=== PATIENT | female | born 1985 | race Caucasian/White ===

== ENCOUNTER 2022-01-14 10:33 | Emergency (ER) | payer OTHER, SELFPAY ==
[2022-01-14 11:04] VITALS: BP 103/72; BP 112/82; PULSE 62; PULSE 74; RESP 20; O2SAT 97; O2SAT 98; BMI 23.8
[2022-01-14] MEDS: Ondansetron ODT 4 MG TAB.RAPDIS TRANSLINGU (11:53)
[2022-01-14] MEDS: cefTRIAXone sodium 500 MG VIAL IM (11:53)
[2022-01-14] MEDS: metroNIDAZOLE 500 MG TABLET PO (11:53)
[2022-01-14] MEDS: levonorgestreL 1.5 MG TABLET PO (11:53)
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
[2022-01-14 12:07] VITALS: BP 112/81; PULSE 63; RESP 18; O2SAT 97
[2022-01-14 12:07] LABS: MANUAL DIFF FLAG NO
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
[2022-01-14 12:09] LABS: Basophils Percent Auto 0.6 % (0-2); Eosinophils Absolute Auto 0.1 X10*3/uL (0.0-0.4); Eosinophils Percent Auto 1.8 % (0-4); Hematocrit 44.3 % (37.0-47.0); Hemoglobin 14.8 g/dl (12.0-16.0); Imm Gran Abs Auto 0.02 X10*3/uL (0.00-0.03); Imm Gran Pct Auto 0.3 % (0.0-0.4); Lymphocytes Absolute Auto 1.8 X10*3/uL (1.2-4.9); Lymphocytes Percent Auto 27.6 % (20-40); Mean Corpuscular HGB Conc 33.4 g/dl (31.0-35.0); Mean Corpuscular Hemoglobin 31.5 pg (27.0-33.0); Mean Corpuscular Volume 94.3 fL (80.0-98.0); Monocytes Absolute Auto 0.4 X10*3/uL (0.1-1.2); Monocytes Percent Auto 5.9 % (2-11); Neutrophils Absolute Auto 4.2 x10*3/uL (2.0-8.3); Neutrophils Percent Auto 63.8 % (45-73); Platelet Count 356 X10*3/uL (160-400); Red Cell Distribution Width 12.3 % (11.0-16.0); White Blood Count 6.6 X10*3/uL (4.8-10.8)
[2022-01-14 12:24] LABS: COVID-19 Test Negative (Negative); IDNOW Serial# 16C4AD1C
[2022-01-14 12:31] LABS: Alanine Aminotransferase 12 U/L (0-31); Albumin Level 4.8 g/dL (3.5-5.0); Alkaline Phosphatase 84 U/L (39-117); Anion Gap 14 (12-20); Aspartate Amino Transferase 18 U/L (5-31); Bilirubin Total 0.4 mg/dL (0.0-1.0); Blood Urea Nitrogen 15 mg/dL (9-16); Calcium 9.6 mg/dL (8.4-10.2); Carbon Dioxide 25 mmol/L (22-29); Chloride 108 mmol/L (96-108); Estimated Glomerular Filt Rate > 60; Glucose Random 78 mg/dL (60-115); Potassium 4.6 mmol/L (3.3-5.1); Sodium 142 mmol/L (135-145); Total Protein 7.6 g/dL (6.5-8.0)
[2022-01-14] MEDS: Post Exposure Medication Kit 1 KIT PO (12:31)
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
[2022-01-14 16:27] VITALS: BP 93/51; PULSE 59; RESP 16; O2SAT 94
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
[2022-01-14 20:00] VITALS: BP 101/67; PULSE 62; RESP 16; TEMP 36.6; O2SAT 98
[2022-01-14 20:21] LABS: Appearance Urine Clear; Color Urine Dark Yellow; Glucose Urine UA Negative (Negative); Leukocyte Esterase Urine Small (1+) (Negative); Nitrite Urine Positive (Negative); Specific Gravity - Urine >= 1.030 (1.005-1.025); Urine Blood Negative (Negative); Urine Ketones 15 mg/dL (Negative); Urine Protein Trace mg/dL (Neg-Trace)
[2022-01-14 20:23] LABS: Bacteria Urine 3+ (None Seen); Hyaline Casts Urine 0-2 /LPF (0-2); RBC Urine 0-2 /HPF (0-2); UACC Culture Trigger YES
[2022-01-15 03:35] LABS: HBc Num1 0.04 S/CO (0.00-0.79); HBsAGNum1 0.27 S/CO (0.00-0.99); HIV AB/AG Nonreactive (Nonreactive); HIV Num 1 0.05 S/CO (0.00-0.99); Hepatitis B Core Antibody Nonreactive (Nonreactive); Hepatitis B Surface Antigen Negative (Negative); ~HepC Num1 0.18 S/CO (0.00-0.79); ~Hepatitis B Surface Antibody REACTIVE (Nonreactive); ~Hepatitis C Antibody Nonreactive (Nonreactive)
[2022-01-15 05:21] LABS: Syphilis Screen Nonreactive (Nonreactive)
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
--- NOTE | 2022-01-16 12:18 | PC.NURSE ---
Patient agreed to come back for 10:00am to have a kit collection done. She has not called back or shown up at this time.
== END 2022-01-14 20:08 | disposition home or self-care (01) ==
PROVIDERS: Nurse Practitioner Family; Emergency Provider Emergency Medicine
DX: T76.21XA Adult sexual abuse, suspected, initial encounter (principal); Z20.2 Contact with and (suspected) exposure to infections with a predominantly sexual mode of transmission; Z79.899 Other long term (current) drug therapy; F17.200 Nicotine dependence, unspecified, uncomplicated; Z71.6 Tobacco abuse counseling; Z20.822 Contact with and (suspected) exposure to COVID-19; Y93.9 Activity, unspecified; Y92.810 Car as the place of occurrence of the external cause; Y99.9 Unspecified external cause status
CPT/HCPCS: 80053; 81001; 85025; 86704; 86706; 86780; 86803; 87086; 87340; 87389; 87635; 96372; 99284; J0696

== ENCOUNTER 2022-01-16 12:30 | Emergency (ER) | payer OTHER, SELFPAY ==
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
[2022-01-16 13:27] VITALS: BMI 22.3
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
== END 2022-01-16 15:46 | disposition left against medical advice (07) ==
PROVIDERS: Emergency Provider Emergency Medicine
DX: T74.21XD Adult sexual abuse, confirmed, subsequent encounter (principal); F41.9 Anxiety disorder, unspecified; F17.200 Nicotine dependence, unspecified, uncomplicated
CPT/HCPCS: 99282

== ENCOUNTER 2022-02-18 06:37 | Emergency (ER) | payer OTHER, SELFPAY ==
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
[2022-02-18 06:53] VITALS: BP 124/84; PULSE 94; PULSE 97; RESP 20; TEMP 36.8; O2SAT 97; BMI 26.5
--- NOTE | 2022-02-18 06:59 | PC.NURSE ---
pt presenting with erratic behavior, unable to obtain a blood pressure due to pt moving non-stop.
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
[2022-02-18] MEDS: Amoxicillin/Potassium Clav 875 MG TABLET PO (08:55)
[2022-02-18] MEDS: Ibuprofen 800 MG TABLET PO (08:56)
[2022-02-18] MEDS: Diphth,Pertus(ACell),Tet Adult 0.5 ML SYRINGE IM (08:56)
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
== END 2022-02-18 10:45 | disposition home or self-care (01) ==
PROVIDERS: Emergency Provider Emergency Medicine
DX: S61.052A Open bite of left thumb without damage to nail, initial encounter (principal); S60.222A Contusion of left hand, initial encounter; M79.642 Pain in left hand; M79.641 Pain in right hand; R51.9 Headache, unspecified; Y04.2XXA Assault by strike against or bumped into by another person, initial encounter; Y92.9 Unspecified place or not applicable; Y99.9 Unspecified external cause status; Z79.899 Other long term (current) drug therapy
CPT/HCPCS: 73110; 73120; 73130; 90471; 90715; 99283; 99284

== ENCOUNTER 2022-07-01 01:24 | Emergency (ER) | payer OTHER, SELFPAY ==
[2022-07-01 01:38] VITALS: BP 131/90; PULSE 80; RESP 16; TEMP 36.6; O2SAT 96; BMI 26.5
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
[2022-07-01 03:41] VITALS: BP 123/95; PULSE 53; RESP 16; O2SAT 98
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
[2022-07-01] MEDS: cefTRIAXone sodium 500 MG VIAL IM (04:00)
[2022-07-01] MEDS: Doxycycline Monohydrate 100 MG CAPSULE PO (04:00)
== END 2022-07-01 04:14 | disposition home or self-care (01) ==
PROVIDERS: Emergency Provider Emergency Medicine
DX: N89.8 Other specified noninflammatory disorders of vagina (principal); F17.210 Nicotine dependence, cigarettes, uncomplicated; Z71.6 Tobacco abuse counseling; Z79.899 Other long term (current) drug therapy; Z20.2 Contact with and (suspected) exposure to infections with a predominantly sexual mode of transmission
CPT/HCPCS: 96372; 99283; 99284; J0696

== ENCOUNTER 2022-07-22 14:50 | Emergency (ER) | payer OTHER, SELFPAY ==
[2022-07-22 14:56] VITALS: BP 117/78; PULSE 77; RESP 16; TEMP 36.5; O2SAT 99; BMI 26.5
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
[2022-07-22 15:10] VITALS: BP 118/76; PULSE 86; RESP 20; TEMP 37; O2SAT 98
[2022-07-22 15:44] LABS: Appearance Urine Clear; Color Urine Yellow; Glucose Urine UA Negative (Negative); Leukocyte Esterase Urine Negative (Negative); Nitrite Urine Negative (Negative); PH 6.5 (5.0-9.0); Specific Gravity - Urine 1.025 (1.005-1.025); UMIC TRIGGER UACC YES; Urine Blood Moderate (2+) (Negative); Urine Ketones Negative (Negative); Urine Protein Negative (Neg-Trace)
[2022-07-22 15:55] LABS: Bacteria Urine Trace (None Seen); Hyaline Casts Urine 0-2 /LPF (0-2); WBC Urine 0-5 /HPF (0-5)
[2022-07-22 17:29] LABS: CT PCR NOT DETECTED (Not Detect.); NG PCR NOT DETECTED (Not Detect.)
[2022-07-22] MEDS: cefTRIAXone sodium 500 MG, Lidocaine HCl 1 % MPF 1 ML IM (17:30)
[2022-07-22] MEDS: Doxycycline Monohydrate 100 MG CAPSULE PO (17:30)
== END 2022-07-22 17:38 | disposition home or self-care (01) ==
PROVIDERS: Nurse Practitioner Family; Emergency Provider Emergency Medicine Emergency Medical Services
DX: A64 Unspecified sexually transmitted disease (principal); Z79.899 Other long term (current) drug therapy
CPT/HCPCS: 0353U; 81001; 96372; 99284; J0696

== ENCOUNTER 2023-09-30 02:39 | Emergency (ER) | payer OTHER, SELFPAY ==
[2023-09-30 02:42] VITALS: BP 136/90; PULSE 70; O2SAT 98
[2023-09-30 03:05] VITALS: BP 133/98; PULSE 68; RESP 14; TEMP 36.3; O2SAT 97; BMI 25.7
--- OUTSIDE RECORDS SUMMARY | 2023-09-30 03:13 | XMS_ITS | Continuity of Care Document ---
[facility] Address [address] [place] [address]- Care Team Providers Care Protection Chief Industrial Plant Name Role Phone Not on Staff, PCP Primary Care Physician Unavail able [facility]counter [facility] Date(s): 02/28/23 - 03/30/23 [facility] Briana Snowdens [facility] [address] [place], [place] [address] Allergies, Adverse Reactions, Alerts No Known Medication Allergies Medications M-Eduardo Plus oral tablet 1 tablet, By Mouth, Daily, # 90 tablet, 4 Refills, Maintenance, 02/26/23 15:14:00 EDT, [id number], Partial fill upon patient request if the prescription is for a schedule II opioid drug., 1 tablet By Mouth Daily Start Date: 02/26/23 Status: Ordered Social History Social History Type Response Smoking Status Former smoker, quit more than 30 days ago entered on: 03/18/23 Sex Patient Care team information Care Team Personnel Name: Not on Staff, PCP Position: [facility] Physician (General Medicine) Member Role: PCP
--- OUTSIDE RECORDS SUMMARY | 2023-09-30 03:13 | XMS_ITS | Continuity of Care Document ---
Author Organization [facility] Address [address] [address]- Care Team Providers Care Patient Scheduling Coordinator Name Role Phone Not on Staff, PCP Primary Care Physician Unavail able Encounter [facility] Date(s): 02/26/23 - 03/28/23 [facility] [address] [address]- Allergies, Adverse Reactions, Alerts No Known Medication Allergies Medications M-Eduardo Plus oral tablet 1 tablet, By Mouth, Daily, # 90 tablet, 4 Refills, Maintenance, 02/26/23 15:14:00 EDT, [id number], Partial fill upon patient request if the prescription is for a schedule II opioid drug., 1 tablet By Mouth Daily Start Date: 02/26/23 Status: Ordered Macrobid macrocrystals-monohydrate 100 mg oral capsule 1 capsule = 100 mg, By Mouth, 2 times a day, for 7 days, # 14 capsule, 0 Refills, Acute 03/29/23 12:54:00 EST, 03/22/23 12:54:00 EST, Capsule, [id number], Partial fill upon patient request ifthe prescription is for a schedule II opioid drug.,... Start Date: 03/22/23 Stop Date: 03/29/23 Status: Ordered Social History Social History Type Response Smoking Status Former smoker, quit more than 30 days ago entered on: 03/18/23 Sex Patient Care team information Care Team Personnel Name: Not on Staff, PCP Position: [facility] Physician (General Medicine) Member Role: PCP
--- OUTSIDE RECORDS SUMMARY | 2023-09-30 03:13 | XMS_ITS | Continuity of Care Document ---
Author Organization [facility] Address [address] [place] [address]- Care Team Providers Care Station Baggage Agent Name Role Phone Not on Staff, PCP Primary Care Physician Unavail able Encounter [facility] Date(s): 02/27/23 - 03/29/23 [facility] Briana Snowdens [facility] [address] [place], [place] [email or web address] Allergies, Adverse Reactions, Alerts No Known Medication Allergies Medications M-Eduardo Plus oral tablet 1 tablet, By Mouth, Daily, # 90 tablet, 4 Refills, Maintenance, 02/26/23 15:14:00 EDT, [id number], Partial fill upon patient request if the [...]
--- OUTSIDE RECORDS SUMMARY | 2023-09-30 03:13 | XMS_ITS | Continuity of Care Document ---
Author Organization [facility] Address [address] [address]- Care Team Providers Care Utility Driver Name Role Phone Not on Staff, PCP Primary Care Physician Unavail able [place] [facility] [place]): 02/19/23 - 03/21/23 [facility] and [facility] [address] [address]- Allergies, Adverse Reactions, Alerts No Known Medication Allergies Medications doxylamine 25 mg oral tablet 0.5 tablet = 12.5 mg, By Mouth, Daily at bedtime, PRN Nausea & Vomiting, for 30 days, # 30 tablet, 0 Refills, Acute 03/22/23 13:33:00 EST, 02/20/23 13:33:00 EDT, Tablet, [id number], Partial fill upon patient request if the prescription is for... Start Date: 02/20/23 Stop Date: 03/22/23 Status: Ordered M-Eduardo Plus oral tablet 1 tablet, By Mouth, Daily, # 90 tablet, 4 Refills, Maintenance, 02/26/23 15:14:00 EDT, [id number], Partial fill upon patient request if the prescription is for a schedule II opioid drug., 1 tablet By Mouth Daily Start Date: 02/26/23 Status: Ordered pyridoxine 25 mg oral tablet 1 tablet = 25 mg, By Mouth, 3 times a day, PRN Nausea & Vomiting, for 30 days, # 90 tablet, 0 Refills, Acute 03/22/23 13:33:00 EST, 02/20/23 13:33:00 EDT, Tablet, [id number], Partial fillupon patient request if the prescription is for a sched... Start Date: 02/20/23 Stop Date: 03/22/23 Status: Ordered Social History Social History Type Response Smoking Status Former smoker, quit more than 30 days ago entered on: 03/18/23 Sex Patient Care team information Care Team Personnel Name: Not on Staff, PCP Position: S Physician (General Medicine) Member Role: PCP
--- OUTSIDE RECORDS SUMMARY | 2023-09-30 03:13 | XMS_ITS | Continuity of Care Document ---
[facility] Address [address] [address]- Care Team Providers Care Manager Consumer Name Role Phone Not on Staff, PCP Primary Care Physician Unavail able Encounter [facility] [place] Date(s): 03/04/23 - 04/04/23 [facility] [address] [address]- Attending Physician: Not on Staff, Attending MD Admitting Physician: Willa Camarillo CNM Referring Physician: Kerry Ramos CNM Allergies, Adverse Reactions, Alerts No Known Medication Allergies Medications M- Plus oral tablet 1 tablet, By Mouth, Daily, # 90 tablet, 4 Refills, Maintenance, 02/26/23 15:14:00 EDT, [id number], Partial fill upon patient request if the [...]
--- OUTSIDE RECORDS SUMMARY | 2023-09-30 03:13 | XMS_ITS | Continuity of Care Document ---
Author Organization [facility] Address [address] [facility] [place] [address]- Care Team Providers Care Stock Ranch Supervisor Name Role Phone Not on Staff, PCP Primary Care Physician Unavail able [place] [facility] [place]23 - 03/06/23 [facility] [address] [facility], [address] [place] [address]- Attending Physician: Portia August MD Referring Physician: Ivan REESE, Beryl Nunes Medications doxylamine 25 mg oral tablet 0.5 tablet = 12.5 mg, By Mouth, Daily at bedtime, PRN Nausea & Vomiting, for 30 days, # 30 tablet, 0 Refills, Acute 03/22/23 13:33:00 EST, 02/20/23 13:33:00 EDT, Tablet, [id number], Partial fill upon patient request if the prescription is for... Start Date: 02/20/23 Stop Date: 03/22/23 Status: Ordered M- Plus oral tablet 1 tablet, By [...] Date: 02/20/23 Stop Date: 03/22/23 Status: Ordered Radiology * Event Display: PDC First Trimester Obstetrical U/S * Event Display: PDC First Trimester Obstetrical U/S Authored Date: [id number] OBSTETRICS REPORT PATIENT INFO: CMRN: [id number] BMRN: [id number] : [birth year] (38 yrs)(F) Name: RADHA QUARLES Visit Date: 02/27/2023 11:30 am PERFORMED BY: Performed By: Liz Shannon RDMS Attending: Ramila Sharma MD Referred By: HENRY Love CNM Location: [address] INDICATIONS: AMA multigravida O09.52_ Unsure dates Z36.87 EVALUATION: Num Of Fetuses: 1 Gest. Sac: Seen in the intrauterine cavity Yolk Sac: Not visualized Pole: Visualized Heart Rate(bpm): 144 Cardiac Activity: Present Presentation: Variable Placenta: Posterior Amniotic Fluid ANGIE FV: Within normal limits BIOMETRY: CRL: 64.6 mm G.Age: 12w 6d AGNIESZKA: 09/05/23 GESTATIONAL AGE: Best: 12w 6d Det. By: Tyrone Parson AGNIESZKA: 09/05/23 (02/27/23) ANATOMY: Cranium: SEEN Choroid Plexus: NOT WELL SEEN Heart: SEEN Stomach: SEEN Abdominal Wall: SEEN Bladder: SEEN Upper Extremities: SEEN Lower Extremities: SEEN CERVIX UTERUS ADNEXA: Cervix Appears closed Adnexa Not well seen. COMMENTS: Live intrauterine gestation. Due to unsure LMP, the EDC was assigned by today's study. Ramila Sharma MD Electronically Signed Final Report 02/27/2023 03:02 pm * Event Display: PDC First Trimester Obstetrical U/S Authored Date: [id number] Please click on pdf link to open report Patient Care team information Care Team Personnel Name: Not on Staff, PCP Position: S Physician (General Medicine) Member Role: PCP
--- OUTSIDE RECORDS SUMMARY | 2023-09-30 03:13 | XMS_ITS | Continuity of Care Document ---
Author Organization [facility] Address [address] [facility] [place] [address]- Care Team Providers Care Relay Checker Name Role Phone Not on Staff, PCP Primary Care Physician Unavail able Encounter [facility] [place] Date(s): 02/27/23 - 03/29/23 [facility] [address] [facility] [place], [place] [address] Attending Physician: Norma Walker Admitting Physician: Norma Walker Referring Physician: AdmtrNorma Allergies, Adverse Reactions, Alerts No Known Medication Allergies Medications M- Plus oral tablet 1 tablet, By Mouth, Daily, # 90 tablet, 4 Refills, Maintenance, 02/26/23 15:14:00 EDT, [id number], Partial fill upon patient request if the [...]
--- OUTSIDE RECORDS SUMMARY | 2023-09-30 03:13 | XMS_ITS | Continuity of Care Document ---
Author Organization [facility] Address [address] [address]- Care Team Providers Care Corporate Attorney Name Role Phone Not on Staff, PCP Primary Care Physician Unavail able Encounter [facility] Date(s): 03/04/23 - 04/03/23 [facility] and [facility] [address] [address]- Allergies, Adverse Reactions, Alerts No Known Medication Allergies Medications M-Eduardo Plus oral tablet 1 tablet, By Mouth, Daily, # 90 tablet, 4 Refills, Maintenance, 02/26/23 15:14:00 EDT, [id number], Partial fill upon patient request if the [...]
[2023-09-30 03:26] VITALS: BP 130/89; PULSE 71; RESP 18; TEMP 36.8; O2SAT 100
[2023-09-30 03:56] VITALS: BP 130/89; PULSE 71; RESP 18; TEMP 36.8; O2SAT 100
== END 2023-09-30 03:59 | disposition left against medical advice (07) ==
PROVIDERS: Emergency Provider Emergency Medicine
DX: Z04.1 Encounter for examination and observation following transport accident (principal); M54.2 Cervicalgia
CPT/HCPCS: 99283

== ENCOUNTER 2024-02-04 11:32 | Emergency (ER) | payer OTHER, SELFPAY ==
[2024-02-04 11:43] VITALS: BP 128/84; PULSE 79; RESP 18; TEMP 36.8; O2SAT 97
[2024-02-04 11:46] VITALS: BP 128/84; BP 154/100; PULSE 79; PULSE 97; RESP 18; TEMP 36.8; O2SAT 97; O2SAT 98; BMI 25.1
--- NOTE | 2024-02-04 11:46 | MHC.CARE ---
Sary from [facility] co-response called for an expect on Elda Vang, she reports patient is high on PCP and was on a third floor and was going to jump out of the window. She reports it does not appear it was a suicide attempt rather she wanted to leave the home and a friend was preventing her from leaving so she went out on the balcony and wanted to jump to get away from the home. Patient recently had a baby and DCF removed baby from her custody. Patient was not assessed in the community per [facility], however she reports she will look in [facility] system to see if they have a history on her and call CARE team back with information.
--- NOTE | 2024-02-04 12:07 | ED.GENADULT ---
HPI - General Adult General Chief complaint: Psychiatric Symptoms Stated complaint: EMOTIONAL DISTRESS,?SUBS USE,VOLUNTARY Time Seen by Provider: 02/04/24 12:07 History of Present Illness ED Provider: Oleg ESPINOZA narrative: The patient is a 39-year-old woman who was brought to the hospital by ambulance after an event at her home. Apparently she was trying to leave her home and she was being prevented from leaving. I believe a friend or acquaintance was preventing her from leaving. Patient ended up on a balcony on the 3rd floor. She was not making any suicidal gestures or suicidal statements. I believe the friend or acquaintance called 911 and police arrived and the patient was then brought to the hospital. Year the [facility] her friend had stopped her from leaving the house and she was frustrated. She says that the friend is recently homeless and that she was letting him stay at her house. The patient says that she has plans to go to [place] and meet a friend in [place] and go to a casino. She says that the acquaintance in her house wanted to join on this trip and that was why the acquaintance was not letting her leave. The patient says she was absolutely not suicidal at all. She does not feel depressed or suicidal. She has an open DCF case that she she says she is trying to work through but this is not making her feel suicidal. She denies any substance use. She denies any illness. She says she does not take any regular medications. She says she has not been hospitalized for any psychiatric reasons in the past. Related Data Previous Rx's ?Medication ?Instructions ?Recorded doxycycline hyclate 100 mg tablet 100 mg PO BID 7 days #14 tabs 01/14/22 metronidazole 500 mg tablet 500 mg PO BID 7 days #14 tabs 01/14/22 amoxicillin 875 mg-potassium 1 tab PO Q12H #14 tabs 02/18/22 clavulanate 125 mg tablet ibuprofen 600 mg tablet 600 mg PO TID PRN fever or pain 02/18/22 #20 tabs doxycycline monohydrate 100 mg 100 mg PO BID #13 caps 07/01/22 capsule Allergies Allergy/AdvReac Type Severity Reaction Status Date / Time No Known Allergies Allergy Verified 02/04/24 11:50 Review of Systems Review of Systems: Yes all other systems are reviewed and are negative [facility] Past Medical History Medical History No pertinent past medical history Social History Social History Alcohol intake: current Alcohol intake frequency: holidays/special occasions only Patient Tobacco Use Status: Current everyday Tobacco user Substance Use Type: Hallucinogens Advance Directives: No Advance Directives Information Provided: No Do you have a plan to hurt others: No Plan Physical Exam ED Vital Signs: Vital Signs - 24 hr 02/04/24 11:43 02/04/24 11:46 02/04/24 12:35 Temperature 98.2 F 98.2 F 98.2 F Pulse Rate 79 79 79 Respiratory Rate 18 18 18 Blood Pressure 128/84 128/84 128/84 Pulse Oximetry 97 97 97 Oxygen Delivery Method Room Air Room Air Room Air BMI result Body Mass Index 25.1 Const Other: The patient is awake and alert, pleasant and cooperative. Aside from slight degree of anxiety and some mildly pressured speech her mental status seems clear and appropriate. She does not appear in distress. She is well-groomed. HENMT Other: Face is symmetrical. Mucous membranes moist. Pharynx unremarkable. Eyes General: appearance normal, both eyes and all related structures Alignment and Position: alignment normal Periorbital: periorbital findings normal Eyelids: Yes eyelids normal Pupils: Equal, round and reactive pupils present EOM: EOMs intact bilaterally Neck Neck: Yes full ROM and Yes supple Resp Effort & Inspection: normal respiratory effort Auscultation: clear to auscultation bilaterally Cardio Rate: regular rate Rhythm: regular rhythm Heart sounds: S1 normal heart sound present and S2 normal heart sound present Skin Other: Skin is dry and unremarkable Neuro Other: The patient is awake and alert. She is oriented. She has a mildly anxious affect and some mild pressure to her speech but her mental status is otherwise normal. Eye movements are intact. Pupils are normal. Face is symmetrical. Speech is clear. She has normal strength and sensation and coordination in her extremities. She has a normal gait. She seems neurologically intact. Cranial nerves: Yes Equal, round and reactive pupils present Extrem Other: No peripheral edema. Psych Other: The patient is well-kempt and appropriately oriented. She had some mild pressure to her speech and seemed mildly anxious but did not seem to have any clear thought disorder. She denies suicidality or homicidality. She denies any intent to harm herself in any way. She seems future oriented. Medical Decision Making Medical Decision Making MDM Narrative: The patient is a 39-year-old female who was brought to the hospital by ambulance after an event at her home where she was apparently had a window or possibly a balcony. At no point did she make any threats to harm herself. She says that she was being prevented from leaving her house by an acquaintance. Apparently the acquaintance said the patient might be on PCP. On my exam the patient could potentially be under a slight sense of some kind of intoxicating substance but she does not seem significantly intoxicated or altered. She does not wish to stay in the emergency room. She does not wish to have any testing done. She is not indicating anything like suicidality and I do not think she has any clear thought disorder. At the moment I think she has capacity to make her own decisions. I therefore do not see that I have any a 30 to hold her against her will or perform any testing without her consent. She was therefore discharged. She has a PCP at the [facility] in [place] and is advised to make a follow up appointment. Discharge Plan Discharge Clinical Impression: Encounter for behavioral health screening Patient Disposition: Home, Self-Care Additional Instructions: If at any point you are feeling like you need to speak to somebody confidentially you can contact the [employer] [facility] [employer] hotline at [phone]. Please plan on following up with your regular doctor at the [facility]. If at any point you are feeling significantly worse please return to the emergency room for further evaluation. Prescriptions: No Action doxycycline hyclate 100 mg tablet 100 mg PO BID 7 Days Qty: 14 0RF metronidazole 500 mg tablet 500 mg PO BID 7 Days Qty: 14 0RF doxycycline monohydrate 100 mg capsule 100 mg PO BID Qty: 13 0RF amoxicillin-pot clavulanate 875-125 mg tablet 1 tab PO Q12H Qty: 14 0RF ibuprofen 600 mg tablet 600 mg PO TID PRN (Reason: fever or pain) Qty: 20 0RF Referrals: [facility] [Provider Group] Interventions: [place]-Suicide Risk Severity Scale Last Done: 02/04/24 12:34 ED Discharge Assessment Last Done: 02/04/24 12:35 Discharge Date/Time: 02/04/24 12:37 Print Language: Ethiopian
--- NOTE | 2024-02-04 12:09 | PC.NURSE ---
Patient refusing to change lead, reports that someone told her she could get her vitals taken and then leave. This Rn attempted to educate patient that she would have to be evaled first but pt continues to refuse. MD Tu speaking with patient at this time
--- NOTE | 2024-02-04 12:26 | PC.NURSE ---
evaled patient at bedside, plan for discharge, pt is calm and cooperative, no apparent distress
[2024-02-04 12:35] VITALS: BP 128/84; PULSE 79; RESP 18; TEMP 36.8; O2SAT 97
== END 2024-02-04 12:37 | disposition home or self-care (01) ==
PROVIDERS: Emergency Provider Emergency Medicine
DX: F41.9 Anxiety disorder, unspecified (principal); Z03.89 Encounter for observation for other suspected diseases and conditions ruled out
CPT/HCPCS: 99284

== ENCOUNTER 2024-02-06 11:46 | Emergency (ER) | payer OTHER, SELFPAY ==
[2024-02-06 12:06] VITALS: BP 118/72; PULSE 87
[2024-02-06 12:07] VITALS: BP 130/94; PULSE 89; RESP 18; TEMP 36.3; O2SAT 96; BMI 25.6
[2024-02-06 12:14] VITALS: BP 130/94; PULSE 89; RESP 18; TEMP 36.3; O2SAT 96
--- NOTE | 2024-02-06 12:59 | ED_ITS ---
HPI - General Adult General Chief complaint: Psychiatric Symptoms Stated complaint: SI/PSYCH EVAL PER EMS Time Seen by Provider: 02/06/24 12:04 Source: patient and EMS Mode of arrival: EMS Limitations: no limitations History of Present Illness ED Provider: Diana Zelaya PA-C HPI narrative: Patient is a 39 year old assigned female at with no reported medical history presenting to the emergency department today with suicidal ideation. Patient states that she was having suicidal thoughts including jumping out of her apartment window on the 3rd floor. Patient denies any dizziness, lightheadedness, abdominal pain, nausea, vomiting, fever, chills, blurry vision, double vision, loss of vision, chest pain, difficulty breathing, shortness of breath, back pain, night sweats, pain with urination, increased urinary frequency, increased urinary urgency, blood in her urine or stool, syncope or a near syncopal episode, recent trauma or falls, bowel incontinence, bladder incontinence, or any other complaints at this time. Relieving factors: none Exacerbating factors: none Associated symptoms: denies other symptoms Treatments prior to arrival: none Related Data Previous Rx's ?Medication ?Instructions ?Recorded doxycycline hyclate 100 mg tablet 100 mg PO BID 7 days #14 tabs 01/14/22 metronidazole 500 mg tablet 500 mg PO BID 7 days #14 tabs 01/14/22 amoxicillin 875 mg-potassium 1 tab PO Q12H #14 tabs 02/18/22 clavulanate 125 mg tablet ibuprofen 600 mg tablet 600 mg PO TID PRN fever or pain 02/18/22 #20 tabs doxycycline monohydrate 100 mg 100 mg PO BID #13 caps 07/01/22 capsule Allergies Allergy/AdvReac Type Severity Reaction Status Date / Time No Known Allergies Allergy Verified 02/06/24 12:13 Review of Systems 2 Constitutional: Constitutional: Reports no additional constitutional complaints, Denies chills, Denies fever(s) and Denies night sweats Eyes: Eyes: Reports no additional eye complaints, Denies blurry vision, Denies change in vision, Denies diplopia, Denies eye discharge, Denies loss of vision and Denies eye pain ENT: Denies dizziness Cardiovascular: Cardiovascular: Reports no additional cardiovascular complaints, Denies chest pain, Denies lightheadedness, Denies Loss of Consciousness and Denies dyspnea Respiratory: Respiratory: Reports no additional respiratory complaints and Denies dyspnea Gastrointestinal: Gastrointestinal: Reports no additional gastrointestinal complaints, Denies abdominal pain, Denies melena, Denies hematochezia, Denies change in bowel habits and Denies change in stool character Genitourinary: Genitourinary: Denies hematuria, Denies urinary frequency, Denies dysuria, Denies urinary incontinence, Denies urinary hesitancy and Denies urinary urgency Musculoskeletal: Musculoskeletal: Reports no additional musculoskeletal complaints, Denies numbness and Denies tingling Neurologic: Denies dizziness, Denies loss of vision, Denies numbness and Denies tingling Psychiatric: Psychiatric: Reports no additional psychiatric complaints, Denies homicidal ideation and Reports suicidal ideation Endocrine: Endocrine: Reports no additional endocrine complaints Hematologic/Lymphatic: Hematologic/Lymphatic: Reports no additional hematologic/lymphatic complaints Allergic/Immunologic: Allergic/Immunologic: Reports no additional allergic/immunologic complaints PMFSH Past Medical History Attestation statement: The following information was validated with the patient. Source: old records reviewed and nursing notes reviewed Medical History No pertinent past medical history Social History Social History Alcohol intake: current Alcohol intake frequency: holidays/special occasions only Patient Tobacco Use Status: Current everyday Tobacco user Smoked in Last 30 Days: Yes Use of substances other than those prescribed or required for medical reasons: Yes Substance Use Type: Hallucinogens and Marijuana Last Used Substance: Days (ago) Advance Directives: No Do you have a plan to hurt others: No Plan Physical Exam ED Vital Signs: Vital Signs - 24 hr 02/06/24 12:07 02/06/24 12:14 Temperature 97.4 F 97.4 F Pulse Rate 89 89 Respiratory Rate 18 18 Blood Pressure 130/94 H 130/94 H Pulse Oximetry 96 96 Oxygen Delivery Method Room Air Room Air BMI result Body Mass Index 25.6 Const General: cooperative, no acute distress, alert and awake Nutritional Appearance: well nourished Orientation/consciousness: patient oriented x3 Limitations: no limitations HENMT Head: Yes normal to inspection and Yes atraumatic Ears: hearing grossly normal bilaterally and external ears normal General nose exam: Normal external nose present, no nasal discharge noted and no epistaxis Face and sinus: Yes normal facial exam, No abrasion and No laceration Mouth: Normal oral and palatal mucosa present, no drooling and no muffled voice Eyes General: appearance normal, both eyes and all related structures Periorbital: periorbital findings normal Eyelids: Yes eyelids normal Conjunctivae: conjunctivae normal Pupils: Equal, round and reactive pupils present EOM: EOMs intact bilaterally Neck Neck: Yes normal visual inspection, Yes full ROM and Yes no lymphadenopathy Chest Chest palpation & inspection: normal inspection of the chest Resp Effort & Inspection: normal respiratory effort and able to speak in complete sentences GI Inspection: Yes normal to inspection Neuro General: patient oriented x3 and moves all extremities Cranial nerves: Yes Equal, round and reactive pupils present Cognition (Neuro): normal cognition Extrem General: Yes normal to inspection, Yes full ROM and Yes capillary refill normal Psych Appearance: grossly normal Mental Status: mental status grossly normal Affect: Sad affect present Attitude: Guarded attititude/behavior present Thought content: Suicidality present Medical Decision Making Medical Decision Making MDM Narrative: Patient is a 39 year old assigned female at with no reported medical history presenting to the emergency department today with suicidal ideation. Patient's physical exam was as noted in the physical exam portion of this note. Patient's blood work was unremarkable. Patient's urine showed no acute process. I explained my physical exam findings as well as all test results to the patient. I answered all questions asked by the patient. Patient's disposition will be determined after CARE team evaluation. Care team evaluated the patient. Patient will be taken tumor [facility]. Patient on a Section 12 Differential Diagnosis Differential Diagnoses: The differential diagnosis associated with the presentation includes Suicidal ideation Admission/Observation Consideration of admission/observation: Escalation of care including admission/observation considered Patient's disposition will be determiend after CARE Team evaluation. Lab Data [facility] Lab Attestation statement: I reviewed the patient's lab results. My interpretation of these results are in the [facility] Rationale portion of this note. 02/06/24 14:38 02/06/24 14:38 Labs: Lab Results 02/06/24 02/06/24 02/06/24 Range/Units 14:29 14:38 19:18 WBC 7.8 (4.8-10.8) X10*3/uL RBC 4.55 (4.20-5.50) X10*6/uL Hgb 14.5 (12.0-16.0) g/dl Hct 43.2 (37.0-47.0) % MCV 94.9 (80.0-98.0) fL MCH 31.9 (27.0-33.0) pg MCHC 33.6 (31.0-35.0) g/dl RDW 13.1 (11.0-16.0) % Plt Count 388 (160-400) X10*3/uL MPV 8.1 L (9.4-12.3) fL Immature Gran % (Auto) 0.3 (0.0-0.4) % Neut % (Auto) 61.1 (45-73) % Lymph % (Auto) 32.3 (20-40) % [place] % (Auto) 4.6 (2-11) % Eos % (Auto) 1.3 (0-4) % Baso % (Auto) 0.4 (0-2) % Lymph # (Auto) 2.5 (1.2-4.9) X10*3/uL [place] # (Auto) 0.4 (0.1-1.2) X10*3/uL Eos # (Auto) 0.1 (0.0-0.4) X10*3/uL Baso # (Auto) 0.0 (0.0-0.2) X10*3/uL Abs Immat Gran (auto) 0.02 (0.00-0.03) X10*3/uL Absolute Neuts (auto) 4.8 (2.0-8.3) x10*3/uL Absolute Nucleated RBC 0.000 (0.0-0.012) X10*3/uL Nucleated RBC % (auto) 0.0 (0.0-0.2) /100WBC Sodium 143 (135-145) mmol/L Potassium 4.1 (3.3-5.1) mmol/L Chloride 111 H (96-108) mmol/L Carbon Dioxide 25 (22-29) mmol/L Anion Gap 11 L (12-20) BUN 17 H (9-16) mg/dL Creatinine 0.72 (0.5-1.4) mg/dL Estim Creat Clear Calc 93.6 Estimated GFR > 60 Random Glucose 92 (60-115) mg/dL Calcium 10.1 (8.4-10.2) mg/dL Total Bilirubin 0.2 (0.0-1.0) mg/dL AST 14 (5-31) U/L ALT 12 (0-31) U/L Alkaline Phosphatase 76 (39-117) U/L Total Protein 7.6 (6.5-8.0) g/dL Albumin 4.8 (3.5-5.0) g/dL Beta HCG, Quant < 2 mIU/mL Urine Color Yellow Urine Appearance Cloudy Urine pH 7.0 (5.0-9.0) Ur Specific [place] 1.020 (1.005-1.025) Urine Protein Negative (Neg-Trace) mg/dL Urine Glucose (UA) Negative (Negative) mg/dL Urine Ketones Negative (Negative) mg/dL Urine Blood Negative (Negative) Urine Nitrite Negative (Negative) Ur Leukocyte Esterase Negative (Negative) Salicylates < 5.0 L (15-30) mg/dL Urine Opiates Screen Not Detected (Not Detect) Ur Buprenorphine Scrn Not Detected (Not Detect) ng/mL Ur Oxycodone Screen Not Detected (Not Detect) ng/mL Urine Methadone Screen Not Detected (Not Detect) ng/mL Urine Fentanyl Screen Not Detected (Not Detect) Acetaminophen < 3 (<30) mcg/mL Ur Barbiturates Screen Not Detected (Not Detect) Ur Phencyclidine Scrn POSITIVE H (Not Detect) Ur Amphetamines Screen Not Detected (Not Detect) U Benzodiazepines Scrn Not Detected (Not Detect) Urine Cocaine Screen Not Detected (Not Detect) U Marijuana (THC) Screen Not Detected (Not Detect) Ethyl Alcohol < 10 mg/dL COVID-19 ([facility]JANE) Negative (Negative) COVID-19 Clin Com See Note Independent Historian Clinical information obtained from an independent historian. History obtained from or confirmed by: EMS (EMS provided additional history and confirmed the history provided by the patient.) Discharge Plan Discharge Clinical Impression: Suicidal ideation, Depression Patient Disposition: Xfer Other Transfer Details: [facility] Instructions: Depression (ED) Additional Instructions: Please follow-up with your primary care physician tomorrow. If you have any worsening or new symptoms, please return to the emergency room or call 911 Prescriptions: No Action doxycycline hyclate 100 mg tablet 100 mg PO BID 7 Days Qty: 14 0RF metronidazole 500 mg tablet 500 mg PO BID 7 Days Qty: 14 0RF doxycycline monohydrate 100 mg capsule 100 mg PO BID Qty: 13 0RF amoxicillin-pot clavulanate 875-125 mg tablet 1 tab PO Q12H Qty: 14 0RF ibuprofen 600 mg tablet 600 mg PO TID PRN (Reason: fever or pain) Qty: 20 0RF Interventions: [place]-Suicide Risk Severity Scale Last Done: 02/06/24 12:14 Print Language: Malawian
--- NOTE | 2024-02-06 13:14 | MHC.EDTECH ---
I asked the patient if i can do a lab draw on her per the orders of the ED provider , patient refused. I informed the RN .
[2024-02-06 14:44] LABS: MANUAL DIFF FLAG NO
[2024-02-06 14:46] LABS: Basophils Percent Auto 0.4 % (0-2); Eosinophils Absolute Auto 0.1 X10*3/uL (0.0-0.4); Eosinophils Percent Auto 1.3 % (0-4); Hematocrit 43.2 % (37.0-47.0); Hemoglobin 14.5 g/dl (12.0-16.0); Imm Gran Abs Auto 0.02 X10*3/uL (0.00-0.03); Imm Gran Pct Auto 0.3 % (0.0-0.4); Lymphocytes Absolute Auto 2.5 X10*3/uL (1.2-4.9); Lymphocytes Percent Auto 32.3 % (20-40); Mean Corpuscular HGB Conc 33.6 g/dl (31.0-35.0); Mean Corpuscular Hemoglobin 31.9 pg (27.0-33.0); Mean Corpuscular Volume 94.9 fL (80.0-98.0); Mean Platelet Volume 8.1 fL (9.4-12.3); Monocytes Absolute Auto 0.4 X10*3/uL (0.1-1.2); Monocytes Percent Auto 4.6 % (2-11); Neutrophils Absolute Auto 4.8 x10*3/uL (2.0-8.3); Neutrophils Percent Auto 61.1 % (45-73); Platelet Count 388 X10*3/uL (160-400); Red Blood Count 4.55 X10*6/uL (4.20-5.50); Red Cell Distribution Width 13.1 % (11.0-16.0); White Blood Count 7.8 X10*3/uL (4.8-10.8)
[2024-02-06 14:48] LABS: Appearance Urine Cloudy; Color Urine Yellow; Glucose Urine UA Negative (Negative); Leukocyte Esterase Urine Negative (Negative); Nitrite Urine Negative (Negative); Urine Blood Negative (Negative); Urine Ketones Negative (Negative); Urine Protein Negative (Neg-Trace)
[2024-02-06 14:58] LABS: Amphetamine Screen Urine Not Detected (Not Detect); Barbiturates, Urine Not Detected (Not Detect); Benzodiazepines Screen Urine Not Detected (Not Detect); Buprenorphine Scr Not Detected (Not Detect); Cannabinoid Screen Urine Not Detected (Not Detect); Cocaine Screen Urine Not Detected (Not Detect); Fentanyl, urine Not Detected (Not Detect); Methadone Screen, Urine Not Detected (Not Detect); Opiate Screen Urine Not Detected (Not Detect); Oxycodone Screen Urine Not Detected (Not Detect); Phencyclidine Screen Urine POSITIVE (Not Detect)
[2024-02-06 14:59] LABS: Ethanol < 10 mg/dL
[2024-02-06 15:10] LABS: Alanine Aminotransferase 12 U/L (0-31); Albumin Level 4.8 g/dL (3.5-5.0); Alkaline Phosphatase 76 U/L (39-117); Anion Gap 11 (12-20); Aspartate Amino Transferase 14 U/L (5-31); Bilirubin Total 0.2 mg/dL (0.0-1.0); Blood Urea Nitrogen 17 mg/dL (9-16); Calcium 10.1 mg/dL (8.4-10.2); Carbon Dioxide 25 mmol/L (22-29); Chloride 111 mmol/L (96-108); Creatinine Clr Calc Pharmacy 93.6; Estimated Glomerular Filt Rate > 60; Glucose Random 92 mg/dL (60-115); HCG Quantitative < 2 mIU/mL; Potassium 4.1 mmol/L (3.3-5.1); Sodium 143 mmol/L (135-145); Total Protein 7.6 g/dL (6.5-8.0)
[2024-02-06 15:40] LABS: Acetaminophen LAB < 3 mcg/mL (<30); Salicylate < 5.0 mg/dL (15-30)
--- NOTE | 2024-02-06 19:27 | MHC.CARE ---
Pt is accepted [facility] Accepting is [facility]. Pt is going 4S unit. Accepting facility will call for N2N
[2024-02-06 19:37] LABS: COVID-19 Test Negative (Negative); IDNOW Serial# 08D9AD1C
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
== END 2024-02-06 21:03 | disposition other institution (70) ==
PROVIDERS: Physician Assistant Medical; Emergency Provider Student in an Organized Health Care Education/Training Program
DX: F33.1 Major depressive disorder, recurrent, moderate (principal); R45.851 Suicidal ideations; R10.2 Pelvic and perineal pain; Z51.81 Encounter for therapeutic drug level monitoring; Z11.52 Encounter for screening for COVID-19; F17.210 Nicotine dependence, cigarettes, uncomplicated; Z79.899 Other long term (current) drug therapy
CPT/HCPCS: 36415; 80053; 80143; 80179; 80307; 81003; 84702; 85025; 87635; 99284

== ENCOUNTER 2024-02-21 23:06 | Emergency (ER) | payer OTHER, SELFPAY ==
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
[2024-02-21 23:12] VITALS: BP 124/82; PULSE 76; O2SAT 98
[2024-02-21 23:33] VITALS: BP 126/95; PULSE 66; RESP 18; TEMP 36.4; O2SAT 99; BMI 24.2
--- NOTE | 2024-02-22 00:37 | PC.NURSE ---
T/w spoke with Nirmal CESPEDES, verbal orders given for labs and CT scan. Labs drawn, awaiting HCG for CT scan.
[2024-02-22 00:39] LABS: Hematocrit 36.3 % (37.0-47.0); Hemoglobin 12.3 g/dl (12.0-16.0); Mean Corpuscular HGB Conc 33.9 g/dl (31.0-35.0); Mean Corpuscular Hemoglobin 32.3 pg (27.0-33.0); Mean Corpuscular Volume 95.3 fL (80.0-98.0); Mean Platelet Volume 7.9 fL (9.4-12.3); Platelet Count 356 X10*3/uL (160-400); Red Blood Count 3.81 X10*6/uL (4.20-5.50); Red Cell Distribution Width 13.1 % (11.0-16.0); White Blood Count 7.6 X10*3/uL (4.8-10.8)
[2024-02-22 01:32] LABS: Anion Gap 10 (12-20); Blood Urea Nitrogen 13 mg/dL (9-16); Calcium 9.1 mg/dL (8.4-10.2); Carbon Dioxide 24 mmol/L (22-29); Chloride 111 mmol/L (96-108); Creatinine Clr Calc Pharmacy 110.9; Estimated Glomerular Filt Rate > 60; Ethanol < 10 mg/dL; Glucose Random 92 mg/dL (60-115); HCG Quantitative < 2 mIU/mL; Potassium 3.6 mmol/L (3.3-5.1); Sodium 141 mmol/L (135-145)
[2024-02-22 04:00] VITALS: BP 111/69; PULSE 70; RESP 16; TEMP 36.8; O2SAT 95
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
--- NOTE | 2024-02-22 04:36 | PC.NURSE ---
provider into assess pt, neck collar removed.
--- NOTE | 2024-02-22 05:02 | PC.NURSE ---
Took over care from Rn Sade, pt sleeping no sign of distress
--- NOTE | 2024-02-22 05:07 | PC.NURSE ---
Pt given a drink and sitting up in bed at this time.
[2024-02-22 06:00] VITALS: BP 124/90; PULSE 71; RESP 15; TEMP 36.9; O2SAT 97
[2024-02-22] MEDS: NaPROXEN 500 MG TABLET PO (06:44)
--- NOTE | 2024-02-22 06:47 | PC.NURSE ---
Medicated per mar, reviewed discharge with pt, pt verbalized understanding, no sign of distress upon discharge.
[2024-02-22 06:53] VITALS: BP 124/90; PULSE 71; RESP 20; TEMP 36.6; O2SAT 97
== END 2024-02-22 06:54 | disposition home or self-care (01) ==
PROVIDERS: Emergency Provider Emergency Medicine
DX: Z04.1 Encounter for examination and observation following transport accident (principal); M79.18 Myalgia, other site; F19.10 Other psychoactive substance abuse, uncomplicated; F17.210 Nicotine dependence, cigarettes, uncomplicated; Z79.899 Other long term (current) drug therapy
CPT/HCPCS: 36415; 70450; 72125; 80048; 80307; 84702; 85027; 99284

== ENCOUNTER 2024-04-09 23:46 | Emergency (ER) | payer OTHER, SELFPAY ==
[2024-04-09 23:51] VITALS: BP 114/76; BP 117/79; PULSE 84; PULSE 99; RESP 20; TEMP 36.7; O2SAT 100; O2SAT 98; BMI 26.1
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
[2024-04-10 01:10] LABS: Albumin Level 4.4 g/dL (3.5-5.0); Anion Gap 13 (12-20); Aspartate Amino Transferase 16 U/L (5-31); Bilirubin Total 0.2 mg/dL (0.0-1.0); Blood Urea Nitrogen 21 mg/dL (9-16); Calcium 9.1 mg/dL (8.4-10.2); Carbon Dioxide 22 mmol/L (22-29); Chloride 112 mmol/L (96-108); Creatinine Clr Calc Pharmacy 82.5; Estimated Glomerular Filt Rate > 60; Ethanol < 10 mg/dL; Glucose Random 94 mg/dL (60-115); Potassium 3.8 mmol/L (3.3-5.1); Sodium 143 mmol/L (135-145); Total Protein 6.8 g/dL (6.5-8.0)
[2024-04-10 01:16] LABS: HCG Quantitative 13 mIU/mL
[2024-04-10 01:29] LABS: Alanine Aminotransferase 15 U/L (0-31); Alkaline Phosphatase 62 U/L (39-117)
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
--- NOTE | 2024-04-10 01:41 | PC.NURSE ---
pt alert at this time, pt able to speak in full clear sentences. Per Sekou CESPEDES, MATA nurse on the way.
--- NOTE | 2024-04-10 01:48 | PC.NURSE ---
pt taken from room 6 and placed into room 7 for privacy.
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
--- NOTE | 2024-04-10 02:19 | PC.NURSE ---
SANE at bedside at this time.
[2024-04-10 03:21] LABS: Syphilis Screen Nonreactive (Nonreactive)
--- NOTE | 2024-04-10 03:31 | PC.NURSE ---
detective Garza speaking with this RN at this time. call back number- [phone]
[2024-04-10 03:32] LABS: HBS Num1 585.01 mIU/mL (0-7.99); HBsAGNum1 0.39 S/CO (0.00-0.99); HIV AB/AG Nonreactive (Nonreactive); HIV Num 1 0.04 S/CO (0.00-0.99); Hepatitis B Surface Antigen Negative (Negative); ~HepC Num1 0.29 S/CO (0.00-0.79); ~Hepatitis B Surface Antibody REACTIVE (Nonreactive); ~Hepatitis C Antibody Nonreactive (Nonreactive)
--- NOTE | 2024-04-10 04:24 | PC.NURSE ---
detective ruiz contacted at this time, reports he will come bedside with pt.
--- NOTE | 2024-04-10 05:35 | PC.NURSE ---
screen examiner Garza at bedside with patient.
[2024-04-10] MEDS: levonorgestreL 1.5 MG TABLET PO (05:37)
[2024-04-10] MEDS: SANE Doxycycline Monohydrate 100 MG CAPSULE PO (05:38)
[2024-04-10] MEDS: SANE Dolutegravir Sodium 50 MG TAB KIT PO (05:38)
[2024-04-10] MEDS: SANE metroNIDAZOLE 500 MG TABLET KIT PO (05:38)
[2024-04-10] MEDS: Post Exposure Medication Kit 1 KIT PO (05:38)
[2024-04-10] MEDS: Azithromycin 500 MG TABLET 1000 MG PO (05:39)
[2024-04-10] MEDS: cefTRIAXone sodium 500 MG, Lidocaine HCl 1 % MPF 1 ML IM (05:39)
[2024-04-10 06:27] VITALS: BP 117/63; PULSE 59; RESP 20; TEMP 36.7; O2SAT 96
--- NOTE | 2024-04-10 06:41 | PC.NURSE ---
attempted to ambulate pt, pt seemingly unsteady on her feet at this time. triage rn at bedside, provider aware. pt assisted back into bed, plan to let pt stay longer in the ED.
[2024-04-10 08:03] LABS: CT PCR NOT DETECTED (Not Detect.); NG PCR NOT DETECTED (Not Detect.)
--- NOTE | 2024-04-10 08:05 | PC.NURSE ---
Pt is sleeping
[2024-04-10 09:16] VITALS: BP 117/63; PULSE 59; RESP 20; TEMP 36.7; O2SAT 96
== END 2024-04-10 09:40 | disposition home or self-care (01) ==
PROVIDERS: Nurse Practitioner Family; Emergency Provider Emergency Medicine Emergency Medical Services
DX: T76.21XA Adult sexual abuse, suspected, initial encounter (principal); Y99.9 Unspecified external cause status; F17.210 Nicotine dependence, cigarettes, uncomplicated
CPT/HCPCS: 36415; 80053; 80307; 84702; 86706; 86780; 86803; 87340; 87389; 87491; 87591; 96372; 99284; J0696; J2003

== ENCOUNTER 2024-04-16 01:10 | Emergency (ER) | payer OTHER, SELFPAY ==
[2024-04-16 01:33] VITALS: PULSE 83; RESP 18; TEMP 37.3; O2SAT 97
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
[2024-04-16 01:53] VITALS: BP 116/97; PULSE 77; PULSE 96; RESP 20; O2SAT 98; O2SAT 99; BMI 31.9
[2024-04-16] MEDS: Tetracaine HCl/PF 0.5% Oph Sol 4 ML DROPS 1 DROP EYE-BOTH (01:59)
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
[2024-04-16 05:18] VITALS: BP 123/86; PULSE 77; RESP 16; TEMP 36.7; O2SAT 99
--- NOTE | 2024-04-16 05:50 | PC.NURSE ---
pt now awake, continues to repeat the same things over and over again and is not answering RN's direct questions. Pt reports the return of a burning sensation to her eyes and face, educated that although she was provided with temp relief she truly needs to take a shower with soap but she just continues to repeat the events of the night and that she doesn't have the keys to her apartment or anyone's number in her current phone. MD aware, pt otherwise is calm and cooperative
[2024-04-16 06:57] VITALS: BP 123/86; PULSE 77; RESP 16; TEMP 36.7; O2SAT 99
== END 2024-04-16 06:57 | disposition home or self-care (01) ==
PROVIDERS: Emergency Provider Emergency Medicine
DX: T65.894A Toxic effect of other specified substances, undetermined, initial encounter (principal); H57.13 Ocular pain, bilateral; Y92.9 Unspecified place or not applicable
CPT/HCPCS: 99283; 99284